=== PATIENT | male | born 2000 | race Caucasian/White ===

== ENCOUNTER 2019-06-15 20:19 | Emergency (ER) | payer MEDICAID ==
[~2019-06-15] VITALS: Ht 162.6 cm; Wt 59.5 kg
[2019-06-15 20:31] VITALS: Ht 162.6 cm; Wt 59.5 kg
[2019-06-16 00:08] VITALS: BP 126/67
== END 2019-06-16 00:08 | disposition home or self-care (01) ==
LOC: ED 20:19
DX: G43.909 Migraine, unspecified, not intractable, without status migrainosus (principal); F17.210 Nicotine dependence, cigarettes, uncomplicated
CPT/HCPCS: J1885; J8597